=== PATIENT | male | born 1985 | race Caucasian/White ===

== ENCOUNTER 2020-08-10 12:22 | Emergency (ER) | payer OTHER ==
[~2020-08-10] VITALS: Ht 182.9 cm; Wt 90.7 kg
[2020-08-10] MEDS ORDERED: ACETAMINOPHEN650 MG PO (15:29)
[2020-08-10] MEDS ORDERED: VITAMIN C1000 MG PO (15:29)
[2020-08-10] MEDS ORDERED: VITAMIN D3-ALO1 EACH PO (15:29)
== END 2020-08-10 17:12 | disposition home or self-care (01) ==
LOC: ER 12:22
DX: B34.9 Viral infection, unspecified (principal)